=== PATIENT | female | born 1995 | race African-American/Black ===

== ENCOUNTER 2021-06-25 18:42 | Emergency (ER) | payer MEDICAID ==
[~2021-06-25] VITALS: Ht 170.2 cm; Wt 82.0 kg
[2021-06-25 19:53] LABS: EOSINOPHILS % 4.1 % (0.0-5.0); LYMPHOCYTES % 44.6 % (20.0-50.0); MEAN CORPUSCULAR HEMOGLOBIN 32.2 pg (28.0-32.0); MEAN CORPUSCULAR VOLUME 94.7 fL (81.0-99.0); MEAN PLATELET VOLUME 7.7 fl (7.4-10.4); MONOCYTES % 8.7 % (2.0-8.0); NEUTROPHILS % 41.6 % (40.0-76.0); PLATELET 198 x1000/uL (130-400); RED BLOOD CELL COUNT 4.65 mill/uL (4.2-5.4); RED CELL DISTRIBUTION WIDTH 18.5 % (11.6-14.6)
[2021-06-25 20:00] LABS: CHLORIDE 109 mEq/L (98-107)
[2021-06-25 20:05] LABS: ETHANOL BLOOD 90 mg/dL; HCG SCREEN NEGATIVE
[2021-06-26 03:36] VITALS: BP 108/76
== END 2021-06-26 03:37 | disposition home or self-care (01) ==
LOC: ER 18:42 → EDBD 18:42 → ER 06-26 03:37
DX: T51.0X1A Toxic effect of ethanol, accidental (unintentional), initial encounter (principal); X58.XXXA Exposure to other specified factors, initial encounter
CPT/HCPCS: 36415; 80053; 80320; 84703; 85025; 99291; G0480